=== PATIENT | male | born 1950 | race Caucasian/White ===

== ENCOUNTER 2023-04-10 08:42 | Inpatient (IN) | payer MEDICARE ==
[2023-04-10 09:14] LABS: #Eosinphils 0.2 thou/uL (0.0-0.7); #Monocytes 0.6 thou/uL (0.11-0.59); #Neutrophils 4.8 thou/uL (1.40-6.50); %Basophils 0.5 % (0.0-1.0); %Eosinophils 2.8 % (0.0-10.0); %Lymphocytes 25.3 % (21.0-51.0); %Monocytes 7.6 % (0.0-10.0); %Neutrophils 63.1 % (42.0-75.0); Hematocrit 48.9 % (42.0-52.0); Hemoglobin 16.8 g/dL (14.0-18.0); Mean Corpuscular HGB CONC 34.4 g/dL (32.0-36.0); Mean Corpuscular Hemoglobin 34.4 pg (27.0-31.0); Mean Platelet Volume 10.7 fL (7.4-10.4); Platelet Count 275 10x3/uL (130-400); RBC Distribution Width 13.5 % (11.5-14.5); Red Blood Cell (RBC) Count 4.89 mill/uL (4.70-6.10); White Blood Cell (WBC) Count 7.6 10x3/uL (4.8-10.8)
[2023-04-10 09:31] LABS: Prothrombin Time 13.4 sec (12.0-14.7)
[2023-04-10 09:32] LABS: PTT 26.1 sec (22.9-36.1)
[2023-04-10 09:44] LABS: Troponin I Less than 0.010 ng/mL (< 0.028)
[2023-04-10 09:45] LABS: ALT (SGPT) 20 U/L (8-55); AST (SGOT) 20 U/L (5-34); Albumin 4.5 g/dL (3.4-4.8); Alkaline Phosphatase 106 U/L (40-110); Anion Gap 15 mmol/L (10-20); BUN (Urea Nitrogen) 19 mg/dL (8.4-25.7); Bilirubin, Total 0.3 mg/dL (0.2-1.2); Calc. Creatinine Clearance 0 mL/min (70-130); Calcium 9.2 mg/dL (7.8-10.44); Carbon Dioxide 21 mmol/L (23-31); Chloride 107 mmol/L (98-107); Estimated GFR 93; Globulin 2.7 g/dL (2.4-3.5); Glucose 160 mg/dL (80-115); Potassium 4.4 mmol/L (3.5-5.1); Protein, Total 7.2 g/dL (5.8-8.1); Sodium 139 mmol/L (136-145)
[2023-04-10] MEDS ORDERED: Aspirin Chewable 81 MG TAB ONE (11:25)
[2023-04-10] MEDS ORDERED: Ondansetron PF 4 MG/2 ML Vial IVP PRN (11:54)
[2023-04-10] MEDS ORDERED: Ondansetron ODT 4 MG TAB PO PRN (11:54)
[2023-04-10 12:03] LABS: Lactic Acid 1.2 mmol/L (0.5-2.2)
[2023-04-10] MEDS ORDERED: Aspirin 300 MG Suppository ONE (12:06)
[2023-04-10] MEDS ORDERED: Clopidogrel Bisulfate 75 MG TAB PO SCH (12:45)
[2023-04-10] MEDS ORDERED: Iopamidol-370 76% 500 ML MDV (1 ML CHARGE) ONE (13:57)
[2023-04-10 16:28] LABS: Bacteria/HPF None Seen HPF (None Seen); Bilirubin Negative (Negative); Blood, Urine Negative (Negative); CAUTI Indications for Culture Alt mental st,lethar; Clarity Clear (Clear); Glucose, Urine (Dipstick) Normal (Negative); Ketone, Urine Trace mg/dL (Negative); Leukocyte Negative Leu/uL (Negative); Nitrite Negative (Negative); Protein, Urine (Dipstick) Negative (Neg-Trace); RBC/HPF 0-3 HPF (0-3); Squamous Epithelial 0-3 HPF (0-3); Urobilinogen Normal mg/dL (Less than 2); WBC/HPF 0-3 HPF (0-3)
[2023-04-10 16:34] LABS: Specific Gravity, Urine 1.047 (1.002-1.036)
[2023-04-10 16:36] LABS: Urine Culture Reflex No No
[2023-04-10] MEDS: Sodium Chloride 0.9% 1,000 ML IV SCH (17:00)
[2023-04-10 17:41] VITALS: BMI 28.4
[2023-04-11] MEDS: Sodium Chloride 0.9% 1,000 ML IV SCH ×3 (00:15→16:17)
[2023-04-11 05:28] LABS: #Eosinphils 0.1 thou/uL (0.0-0.7); #Monocytes 0.9 thou/uL (0.11-0.59); #Neutrophils 7.5 thou/uL (1.40-6.50); %Basophils 0.3 % (0.0-1.0); %Eosinophils 0.8 % (0.0-10.0); %Lymphocytes 17.2 % (21.0-51.0); %Monocytes 8.4 % (0.0-10.0); Hemoglobin 15.8 g/dL (14.0-18.0); Mean Corpuscular HGB CONC 35.1 g/dL (32.0-36.0); Mean Corpuscular Hemoglobin 34.2 pg (27.0-31.0); Mean Corpuscular Volume 97.4 fl (78.0-98.0); Mean Platelet Volume 10.5 fL (7.4-10.4); Platelet Count 265 10x3/uL (130-400); RBC Distribution Width 13.2 % (11.5-14.5); Red Blood Cell (RBC) Count 4.62 mill/uL (4.70-6.10); White Blood Cell (WBC) Count 10.3 10x3/uL (4.8-10.8)
[2023-04-11 05:58] LABS: ALT (SGPT) 20 U/L (8-55); AST (SGOT) 28 U/L (5-34); Albumin 4.1 g/dL (3.4-4.8); Alkaline Phosphatase 102 U/L (40-110); Anion Gap 12 mmol/L (10-20); BUN (Urea Nitrogen) 13 mg/dL (8.4-25.7); Bilirubin, Total 0.4 mg/dL (0.2-1.2); Calc. Creatinine Clearance 113 mL/min (70-130); Calcium 8.9 mg/dL (7.8-10.44); Carbon Dioxide 23 mmol/L (23-31); Cardiac Risk 4.4 (Less than 4.5); Chloride 107 mmol/L (98-107); Cholesterol 163 mg/dl (< 200 Desired); Estimated GFR 97; Globulin 2.7 g/dL (2.4-3.5); Glucose 112 mg/dL (80-115); HDL Cholesterol 37 mg/dL (>60 Neg Risk); LDL Cholesterol, Calculated 113 mg/dL; Potassium 3.7 mmol/L (3.5-5.1); Protein, Total 6.8 g/dL (5.8-8.1); Sodium 138 mmol/L (136-145); Triglycerides 63 mg/dL (Less than 150)
[2023-04-11] MEDS: Atorvastatin Calcium 40 MG TAB PO SCH (22:13)
[2023-04-12] MEDS: Sodium Chloride 0.9% 1,000 ML IV SCH ×3 (03:53→22:11)
[2023-04-12] MEDS: Clopidogrel Bisulfate 75 MG TAB PO SCH (10:41)
[2023-04-12] MEDS: Atorvastatin Calcium 40 MG TAB PO SCH (22:30)
[2023-04-13] MEDS: Sodium Chloride 0.9% 1,000 ML IV SCH ×3 (06:36→21:29)
[2023-04-13] MEDS: Clopidogrel Bisulfate 75 MG TAB PO SCH (08:58)
[2023-04-13] MEDS: Aspirin 81 mg Enteric Coated Tablet PO SCH (08:58)
[2023-04-13] MEDS: Acetaminophen 325 MG TAB PO PRN ×2 (08:58→21:28)
[2023-04-13] MEDS: Atorvastatin Calcium 40 MG TAB PO SCH (21:29)
[2023-04-14] MEDS: Amlodipine 10 MG TAB PO SCH (10:02)
[2023-04-14] MEDS: Clopidogrel Bisulfate 75 MG TAB PO SCH (10:02)
[2023-04-14] MEDS: Aspirin 81 mg Enteric Coated Tablet PO SCH (10:02)
[2023-04-14] MEDS: Lisinopril 20 MG TAB PO SCH (10:03)
[2023-04-14] MEDS: Acetaminophen 325 MG TAB PO PRN (10:04)
[2023-04-14] MEDS: Sodium Chloride 0.9% 1,000 ML IV SCH (11:53)
[2023-04-14] MEDS ORDERED: CEFAZOLIN 2 GM VIAL ONE (13:33)
[2023-04-14] MEDS ORDERED: Sodium Chloride 0.9% 100 ML ONE (13:33)
[2023-04-14] MEDS ORDERED: PROPOFOL 200 MG/20 ML VIAL ONE (13:52)
[2023-04-14] MEDS ORDERED: Lidocaine 1% PF 5 ML VIAL ONE (13:52)
[2023-04-14] MEDS ORDERED: Pantoprazole 40 MG VIAL IVP SCH (16:00)
[2023-04-14] MEDS: Atorvastatin Calcium 40 MG TAB PER TUBE SCH (21:23)
[2023-04-15] MEDS: Acetaminophen 325 MG TAB PO PRN (01:28)
[2023-04-15 09:25] LABS: Anion Gap 15 mmol/L (10-20); BUN (Urea Nitrogen) 12 mg/dL (8.4-25.7); Calc. Creatinine Clearance 133 mL/min (70-130); Calcium 9.2 mg/dL (7.8-10.44); Carbon Dioxide 20 mmol/L (23-31); Chloride 101 mmol/L (98-107); Estimated GFR 102; Glucose 127 mg/dL (80-115); Potassium 3.4 mmol/L (3.5-5.1); Sodium 133 mmol/L (136-145)
[2023-04-15] MEDS: Lisinopril 20 MG TAB PO SCH (11:02)
[2023-04-15] MEDS: Aspirin 81 mg Enteric Coated Tablet PO SCH (11:02)
[2023-04-15] MEDS: Amlodipine 10 MG TAB PO SCH (11:04)
[2023-04-15] MEDS: Pantoprazole 40 MG VIAL IVP SCH (11:05)
[2023-04-15] MEDS: Clopidogrel Bisulfate 75 MG TAB PO SCH (11:05)
[2023-04-15] MEDS: Potassium Chloride 20 MEQ in Premix 1 BAG IVPB SCH ×2 (15:54→17:55)
[2023-04-15 16:04] LABS: #Monocytes 1.4 thou/uL (0.11-0.59); #Neutrophils 9.4 thou/uL (1.40-6.50); %Basophils 0.2 % (0.0-1.0); %Eosinophils 0.1 % (0.0-10.0); %Lymphocytes 9.5 % (21.0-51.0); %Monocytes 11.2 % (0.0-10.0); %Neutrophils 78.6 % (42.0-75.0); Hematocrit 50.5 % (42.0-52.0); Hemoglobin 17.8 g/dL (14.0-18.0); Mean Corpuscular HGB CONC 35.2 g/dL (32.0-36.0); Mean Corpuscular Hemoglobin 34.6 pg (27.0-31.0); Mean Corpuscular Volume 98.1 fl (78.0-98.0); Mean Platelet Volume 10.5 fL (7.4-10.4); Platelet Count 301 10x3/uL (130-400); RBC Distribution Width 13.2 % (11.5-14.5); Red Blood Cell (RBC) Count 5.15 mill/uL (4.70-6.10)
[2023-04-15] MEDS: Acetaminophen 650 MG/20.3 ML UDCUP PER TUBE PRN ×2 (17:53→22:27)
[2023-04-15] MEDS: Carvedilol 6.25 MG TAB PO SCH (17:56)
[2023-04-15] MEDS: Atorvastatin Calcium 40 MG TAB PER TUBE SCH (22:27)
[2023-04-16 05:43] LABS: Bacteria/HPF None Seen HPF (None Seen); Bilirubin Negative (Negative); Blood, Urine Negative (Negative); CAUTI Indications for Culture Fever or rigors; Clarity Clear (Clear); Glucose, Urine (Dipstick) 30 mg/dL (Negative); Ketone, Urine 80 mg/dL (Negative); Leukocyte Negative Leu/uL (Negative); Nitrite Negative (Negative); Protein, Urine (Dipstick) 50 mg/dL (Neg-Trace); RBC/HPF 0-3 HPF (0-3); Specific Gravity, Urine 1.024 (1.002-1.036); Squamous Epithelial 0-3 HPF (0-3); Urobilinogen Normal mg/dL (Less than 2); WBC/HPF None Seen HPF (0-3)
[2023-04-16 05:55] LABS: Urine Culture Reflex No No
[2023-04-16 06:00] LABS: ALT (SGPT) 15 U/L (8-55); AST (SGOT) 19 U/L (5-34); Albumin 3.6 g/dL (3.4-4.8); Alkaline Phosphatase 88 U/L (40-110); Anion Gap 14 mmol/L (10-20); BUN (Urea Nitrogen) 16 mg/dL (8.4-25.7); Bilirubin, Total 0.6 mg/dL (0.2-1.2); Calc. Creatinine Clearance 115 mL/min (70-130); Calcium 9.2 mg/dL (7.8-10.44); Carbon Dioxide 26 mmol/L (23-31); Chloride 102 mmol/L (98-107); Estimated GFR 97; Globulin 3.5 g/dL (2.4-3.5); Glucose 122 mg/dL (80-115); Potassium 3.5 mmol/L (3.5-5.1); Protein, Total 7.1 g/dL (5.8-8.1); Sodium 138 mmol/L (136-145)
[2023-04-16] MEDS: Pantoprazole 40 MG VIAL IVP SCH (11:20)
[2023-04-16] MEDS: Clopidogrel Bisulfate 75 MG TAB PO SCH (11:20)
[2023-04-16] MEDS: Amlodipine 10 MG TAB PO SCH (11:20)
[2023-04-16] MEDS: Aspirin 81 mg Enteric Coated Tablet PO SCH (11:20)
[2023-04-16] MEDS: Lisinopril 20 MG TAB PO SCH (11:20)
[2023-04-16] MEDS: Carvedilol 6.25 MG TAB PO SCH (11:20)
[2023-04-16 13:05] VITALS: TEMP 98.5
[2023-04-16 14:56] VITALS: BP 154/90
== END 2023-04-16 14:31 | disposition swing bed (61) | DRG 64 ==
LOC: SUATTDRO 08:42 → ERS 08:42 → ERHOLD 11:28 → 2SE 16:54
PROVIDERS: ADMIT Family Medicine; ATTEND Hospitalist
PROC: 0DH63UZ Insertion of Feeding Device into Stomach, Percutaneous Approach (ICD-10-PCS; principal; 2023-04-14)
DX: I63.511 Cerebral infarction due to unspecified occlusion or stenosis of right middle cerebral artery (principal); G93.6 Cerebral edema; G45.1 Carotid artery syndrome (hemispheric); G81.94 Hemiplegia, unspecified affecting left nondominant side; I48.20 Chronic atrial fibrillation, unspecified; I48.91 Unspecified atrial fibrillation; I10 Essential (primary) hypertension; F17.210 Nicotine dependence, cigarettes, uncomplicated; E78.5 Hyperlipidemia, unspecified; R13.12 Dysphagia, oropharyngeal phase; K29.80 Duodenitis without bleeding; Z98.890 Other specified postprocedural states
CPT/HCPCS: 0042T; 36415; 36416; 70450; 70496; 70498; 70551; 71045; 72125; 74230; 80048; 80053; 80061; 81001; 83605; 84484; 85025; 85610; 85730; 86140; 87040; 93005; 93010; 93306; 94760; C9113; J1650; J2704; J3480; J3490; J7050; Q9967